=== PATIENT | male | born 1950 ===

== ENCOUNTER → 2023-04-22 | Day surgery (SDC) | payer OTHER | END | disposition home or self-care (01) | LOC: ADM 04-18 14:45 → AMB-ENDOS 05:10 | PROVIDERS: ATTEND Colon & Rectal Surgery | DX: D12.4 Benign neoplasm of descending colon (principal); K57.30 Diverticulosis of large intestine without perforation or abscess without bleeding; K64.8 Other hemorrhoids; Z20.822 Contact with and (suspected) exposure to COVID-19 ==